=== PATIENT | female | born 1935 | race Caucasian/White ===

== ENCOUNTER 2020-08-08 16:19 | Inpatient (IN) | payer MEDICARE, OTHER ==
[~2020-08-08] VITALS: Ht 157.5 cm; Wt 41.0 kg
[~2020-08-08 16:19] MED LIST: ASPI-515 PO; CALC-112 PO; CEPH250S PO; CLOB15CR19 TP; IBUP-1623 PO; LEVO75TA5 PO; METF500T17 PO; OMEP-110 PO; SULF-169 PO
--- NOTE | 2020-08-08 16:24 | NUR ---
BIB EMS FROM [place] FOR EVAL OF L FEMUR FX SUSTAINED THIS AM WHILE "BENDING DOWN". PT DENIES DIZZINESS/CHEST PAIN PRIOR TO INCIDENT. ARRIVES IN REDUCTION DEVICE S/P CONSCIOUS SEDATION AND REDUCTION AT [facility], +DISTAL SENSATION/CIRCULATION. PT REPORTS 5/10 PAIN, BUT DENIES NEED FOR PAIN MEDICATIONS AT THIS TIME. BP/SPO2 MONITORING IN PLACE. LAST MEAL LAST NIGHT AT 1930. DENIES TAKING BLOOD THINNERS.
[2020-08-08] MEDS ORDERED: HYPERTENSION MED (16:27)
[2020-08-08] MEDS ORDERED: INSU100V35 SQ (16:55)
[2020-08-08] MEDS ORDERED: LISI2.5T PO (16:55)
[2020-08-08 17:00] LABS: BASOPHILS % (AUTO) 0 % (0-1); EOSINOPHILS % (AUTO) 1 % (1-7); LYMPHOCYTES % (AUTO) 12 % (22-44); MEAN CORPUSCULAR HEMOGLOBIN 31.2 pg (27.0-34.8); MEAN CORPUSCULAR HGB CONC 34.9 g/dL (32.4-35.8); MONOCYTES % (AUTO) 6 % (2-9); NEUTROPHILS % (AUTO) 81 % (42-75); PLATELET COUNT 268 x10^3/uL (130-400); RED BLOOD COUNT 3.08 x10^6/uL (3.82-5.3); RED CELL DISTRIBUTION WIDTH 13.2 % (9.6-15.2)
[2020-08-08 17:01] LABS: MD NO
[2020-08-08 17:11] LABS: ALBUMIN 3.2 g/dL (3.4-5.0); ANION GAP 5 mmol/L (5-15); CALCIUM 8.3 mg/dL (8.5-10.1); CHLORIDE 97 mmol/L (98-107); CREATININE 0.71 mg/dL (0.55-1.02); INTERNATIONAL NORMALIZED RATIO 1.03 (0.93-1.1); PROTHROMBIN TIME 10.9 Seconds (9.6-11.5)
--- NOTE | 2020-08-08 17:45 | NUR ---
PT RESTING IN KIM SILVA NOTED. DAUGHTER AT BEDSIDE WHO EXPRESSES CONCERN REGARDING PLACEMENT POST ADMIT. JESSICA HUTCHISON MADE AWARE. PT CONTINUES TO DENY NEED FOR PAIN MEDICATIONS.
--- NOTE | 2020-08-08 17:59 | NUR ---
ORDERS RECEIVED FOR BUCKS TRACTION. SURG DEVELOPMENTAL PSYCHOLOGIST CONTACTED FOR HELP WITH SET UP WHO AGREES TO HELP. HOSPITAL BED REQUESTED FOR PATIENT.
[2020-08-08] MEDS ORDERED: MORPHINE SULFATE 4 MG/ML, 1ML ONE (18:13)
--- NOTE | 2020-08-08 18:27 | NUR ---
PT MOVED TO HOSPITAL BED AND BUCKS TRACTION PLACED. PT PRE-MEDICATED W 2MG MORPHINE RODOLFO PER CINDY, HOSPITALIST FIBER MACHINE TENDER'S VERBAL ORDER.
[2020-08-08] MEDS ORDERED: ONDANSETRON ODT 4 MG PO PRN (19:00)
[2020-08-08] MEDS ORDERED: MELATONIN 5 MG TABLET PO PRN (19:00)
[2020-08-08] MEDS ORDERED: DOCUSATE 100 MG CAPSULE PO PRN (19:00)
[2020-08-08] MEDS ORDERED: LIDODERM 5% PATCH TD PRN (19:00)
[2020-08-08] MEDS: SODIUM CHLORIDE 0.9% 1,000 ML IV SCH ×2 (19:04→23:00)
[2020-08-08] MEDS: morphine SULFATE 10 MG/ML, 1ML IVPush PRN (19:04)
[2020-08-08] MEDS: INSULIN DEGLUDEC 5 UNIT HOMEINJ SCH (21:00)
[2020-08-08] MEDS: INSULIN LISPRO 100 UNITS/ML, PEN SQ-INSULIN SCH (21:00)
--- NOTE | 2020-08-08 21:51 | NUR ---
PT PROVIDED SANDWICH COMPLIANT W ORDERED DIET. DAUGHTER REMAINS AT BEDSIDE. PT CONTINUES TO REPORT IMPROVEMENT IN PAIN, DENIES NEED FOR PAIN MEDICATIONS. IMPROVED SBP W FLUIDS
--- NOTE | 2020-08-08 23:13 | NUR ---
PT RESTING IN GURNEY W EYES CLOSED. EVEN/REGULAR RESPIRATIONS NOTED. PT EASILY ARROUSABLE TO VOICE AND DENIES NEEDS/PAIN. L FOOT WITH GOOD CAP REFILL, +SENSATION.
[2020-08-09 01:22] VITALS: BP 110/58
[2020-08-09] MEDS: SODIUM CHLORIDE 0.9% 1,000 ML IV SCH ×2 (03:00→08:43)
[2020-08-09 05:50] LABS: BASOPHILS % (AUTO) 1 % (0-1); EOSINOPHILS % (AUTO) 3 % (1-7); LYMPHOCYTES % (AUTO) 41 % (22-44); MEAN CORPUSCULAR HEMOGLOBIN 31.1 pg (27.0-34.8); MEAN CORPUSCULAR HGB CONC 35.1 g/dL (32.4-35.8); MEAN PLATELET VOLUME 7.4 fL (7.4-10.4); MONOCYTES % (AUTO) 12 % (2-9); NEUTROPHILS % (AUTO) 44 % (42-75); PLATELET COUNT 249 x10^3/uL (130-400); RED BLOOD COUNT 2.75 x10^6/uL (3.82-5.3); RED CELL DISTRIBUTION WIDTH 13.2 % (9.6-15.2)
[2020-08-09 05:56] LABS: MD NO
[2020-08-09 05:59] LABS: CHLORIDE 101 mmol/L (98-107)
[2020-08-09 06:16] LABS: ANION GAP 5 mmol/L (5-15); CALCIUM 8.1 mg/dL (8.5-10.1); CREATININE 0.73 mg/dL (0.55-1.02)
[2020-08-09] MEDS: LEVOTHYROXINE 75 MCG TABLET PO SCH (06:28)
[2020-08-09] MEDS: LISINOPRIL 5 MG TABLET PO SCH (06:28)
[2020-08-09] MEDS ORDERED: HEPARIN 5,000 UNITS/ML, 1ML SQ SCH (07:00)
[2020-08-09 07:30] VITALS: BP 143/71
[2020-08-09] MEDS: INSULIN LISPRO 100 UNITS/ML, PEN SQ-INSULIN SCH ×4 (08:25→21:00)
[2020-08-09] MEDS ORDERED: LEVOTHYROXINE 75 MCG TABLET PO SCH (09:00)
[2020-08-09] MEDS ORDERED: LISINOPRIL 5 MG TABLET PO SCH (09:00)
[2020-08-09] MEDS: CALCIUM/VITAMIN D3 250-125 TABLET PO SCH (09:07)
[2020-08-09] MEDS: LACTATED RINGERS 1,000 ML IV SCH ×2 (09:07→22:20)
[2020-08-09] MEDS: INSULIN DEGLUDEC 5 UNIT HOMEINJ SCH ×2 (09:07→21:00)
[2020-08-09 13:41] VITALS: BP 160/74
[2020-08-09] MEDS: morphine SULFATE 10 MG/ML, 1ML IVPush PRN (16:35)
[2020-08-09] MEDS ORDERED: PROMETHAZINE 25 MG/ML, 1ML IV PRN (18:30)
[2020-08-09] MEDS ORDERED: ONDANSETRON 2MG/ML, 2ML IV ONE (18:30)
[2020-08-09] MEDS ORDERED: FENTANYL PF 100 MCG/2ML IV PRN (18:30)
[2020-08-09] MEDS ORDERED: HYDROcodone/APAP 7.5-325MG/15ML UDC PO PRN (18:30)
[2020-08-09] MEDS ORDERED: morphine SULFATE/PF 1 MG/ML, 10ML IVPush PRN (18:30)
[2020-08-09] MEDS ORDERED: ACETAMINOPHEN 650 MG/20.3 ML UDC PO ONE (18:30)
[2020-08-09] MEDS ORDERED: FENTANYL PF 250 MCG/5ML ONE (19:16)
[2020-08-09] MEDS ORDERED: CEFAZOLIN 1,000 MG ONE ×2 (19:32→19:36)
[2020-08-09] MEDS ORDERED: PROPOFOL 10 MG/ML, 20ML ONE ×2 (19:32→19:36)
[2020-08-09] MEDS ORDERED: SUCCINYLCHOLINE 20 MG/ML, 10ML ONE ×2 (19:32→19:36)
[2020-08-09] MEDS ORDERED: ONDANSETRON 2MG/ML, 2ML ONE (19:32)
[2020-08-09] MEDS ORDERED: DEXAMETHASONE 4 MG/ML, 1ML ONE (19:36)
[2020-08-09] MEDS ORDERED: FENTANYL PF 100 MCG/2ML ONE (20:53)
[2020-08-09] MEDS ORDERED: LABETALOL 5MG/ML, 20ML ONE (21:45)
[2020-08-09] MEDS ORDERED: LABETALOL 5MG/ML, 20ML IV PRN (22:00)
[2020-08-09] MEDS ORDERED: hydrALAzine 20 MG/ML, 1ML IV PRN (22:00)
[2020-08-10 00:40] VITALS: BP 101/60
[2020-08-10] MEDS: CEFAZOLIN PMX 1GM/50ML 50 ML IVPB SCH ×2 (03:52→11:33)
[2020-08-10 03:54] VITALS: BP 115/65
[2020-08-10 05:53] LABS: BASOPHILS % (AUTO) 0 % (0-1); EOSINOPHILS % (AUTO) 0 % (1-7); LYMPHOCYTES % (AUTO) 9 % (22-44); MEAN CORPUSCULAR HEMOGLOBIN 31.3 pg (27.0-34.8); MEAN CORPUSCULAR HGB CONC 34.6 g/dL (32.4-35.8); MEAN PLATELET VOLUME 7.7 fL (7.4-10.4); MONOCYTES % (AUTO) 8 % (2-9); NEUTROPHILS % (AUTO) 84 % (42-75); PLATELET COUNT 216 x10^3/uL (130-400); RED BLOOD COUNT 2.45 x10^6/uL (3.82-5.3); RED CELL DISTRIBUTION WIDTH 13.2 % (9.6-15.2)
[2020-08-10 06:01] LABS: ANION GAP 10 mmol/L (5-15); CALCIUM 8.1 mg/dL (8.5-10.1); CHLORIDE 97 mmol/L (98-107); CREATININE 0.86 mg/dL (0.55-1.02)
[2020-08-10 06:07] LABS: MD NO
[2020-08-10] MEDS: LEVOTHYROXINE 75 MCG TABLET PO SCH (06:35)
[2020-08-10] MEDS: LISINOPRIL 5 MG TABLET PO SCH (06:35)
[2020-08-10 07:08] VITALS: BP 122/68
[2020-08-10] MEDS ORDERED: INSULIN LISPRO 100 UNITS/ML, PEN SQ-INSULIN SCH (07:30)
[2020-08-10] MEDS ORDERED: MAGNESIUM SULFATE/D5W 100 ML IV ONE (07:30)
[2020-08-10] MEDS: SODIUM CHLORIDE 0.9% 1,000 ML IV SCH ×2 (07:44→21:35)
[2020-08-10] MEDS: CALCIUM/VITAMIN D3 250-125 TABLET PO SCH (08:56)
[2020-08-10] MEDS: INSULIN LISPRO 100 UNITS/ML, PEN SQ-INSULIN SCH ×4 (08:56→20:01)
[2020-08-10] MEDS: INSULIN DEGLUDEC 5 UNIT HOMEINJ SCH ×2 (08:58→19:19)
[2020-08-10] MEDS ORDERED: INSULIN GLARGINE 100 UNITS/ML, PEN SQ-INSULIN SCH ×2 (12:00→21:00)
[2020-08-10 12:22] VITALS: BP 96/59
[2020-08-10] MEDS ORDERED: INSULIN GLARGINE 100 UNITS/ML, PEN SQ-INSULIN ONE (12:30)
[2020-08-10] MEDS: ENOXAPARIN 40 MG/0.4 ML SQ SCH (13:19)
[2020-08-10 19:36] VITALS: BP 112/58
[2020-08-11] VITALS (7 sets, daily range): BP systolic 102–151; BP diastolic 53–75
[2020-08-11 05:35] LABS: ANION GAP 4 mmol/L (5-15); CALCIUM 7.6 mg/dL (8.5-10.1); CHLORIDE 103 mmol/L (98-107); CREATININE 0.67 mg/dL (0.55-1.02)
[2020-08-11 05:36] LABS: BASOPHILS % (AUTO) 0 % (0-1); EOSINOPHILS % (AUTO) 1 % (1-7); LYMPHOCYTES % (AUTO) 27 % (22-44); MEAN CORPUSCULAR HEMOGLOBIN 31.1 pg (27.0-34.8); MEAN PLATELET VOLUME 7.4 fL (7.4-10.4); MONOCYTES % (AUTO) 12 % (2-9); NEUTROPHILS % (AUTO) 60 % (42-75); PLATELET COUNT 227 x10^3/uL (130-400); RED BLOOD COUNT 2.12 x10^6/uL (3.82-5.3); RED CELL DISTRIBUTION WIDTH 13.2 % (9.6-15.2)
[2020-08-11 06:00] LABS: MD NO
[2020-08-11] MEDS: LEVOTHYROXINE 75 MCG TABLET PO SCH (06:21)
[2020-08-11] MEDS: LISINOPRIL 5 MG TABLET PO SCH (06:24)
[2020-08-11] MEDS: INSULIN DEGLUDEC 5 UNIT HOMEINJ SCH (07:28)
[2020-08-11] MEDS: CALCIUM/VITAMIN D3 250-125 TABLET PO SCH (08:31)
[2020-08-11] MEDS: INSULIN LISPRO 100 UNITS/ML, PEN SQ-INSULIN SCH ×4 (08:31→22:42)
[2020-08-11] MEDS: ENOXAPARIN 40 MG/0.4 ML SQ SCH (11:49)
[2020-08-11] MEDS: SODIUM CHLORIDE 0.9% 1,000 ML IV SCH (12:50)
[2020-08-11] MEDS: INSULIN GLARGINE 100 UNITS/ML, PEN SQ-INSULIN SCH (22:43)
[2020-08-12 00:20] VITALS: BP 158/77
[2020-08-12] MEDS: ACETAMINOPHEN 325 MG TABLET PO PRN ×2 (01:41→10:02)
[2020-08-12 06:26] LABS: BASOPHILS % (AUTO) 1 % (0-1); EOSINOPHILS % (AUTO) 2 % (1-7); LYMPHOCYTES % (AUTO) 28 % (22-44); MEAN CORPUSCULAR HEMOGLOBIN 28.8 pg (27.0-34.8); MEAN CORPUSCULAR HGB CONC 34.4 g/dL (32.4-35.8); MEAN PLATELET VOLUME 7.1 fL (7.4-10.4); MONOCYTES % (AUTO) 9 % (2-9); NEUTROPHILS % (AUTO) 61 % (42-75); PLATELET COUNT 218 x10^3/uL (130-400); RED BLOOD COUNT 2.63 x10^6/uL (3.82-5.3); RED CELL DISTRIBUTION WIDTH 17.3 % (9.6-15.2)
[2020-08-12 06:41] LABS: MD NO
[2020-08-12] MEDS: LEVOTHYROXINE 75 MCG TABLET PO SCH (06:57)
[2020-08-12] MEDS: LISINOPRIL 5 MG TABLET PO SCH (06:57)
[2020-08-12 07:37] VITALS: BP 131/60
[2020-08-12] MEDS: INSULIN LISPRO 100 UNITS/ML, PEN SQ-INSULIN SCH ×4 (10:02→21:24)
[2020-08-12] MEDS: CALCIUM/VITAMIN D3 250-125 TABLET PO SCH (10:02)
[2020-08-12] MEDS: ENOXAPARIN 30 MG/0.3 ML SQ SCH (12:57)
[2020-08-12 14:08] VITALS: BP 118/62
[2020-08-12] MEDS: SODIUM CHLORIDE 0.9% 1,000 ML IV SCH (16:42)
[2020-08-12] MEDS ORDERED: INSULIN LISPRO 100 UNITS/ML, PEN SQ-INSULIN SCH (17:00)
[2020-08-12 20:09] VITALS: BP 107/64
[2020-08-12 20:11] VITALS: BP 146/71
[2020-08-12] MEDS: INSULIN GLARGINE 100 UNITS/ML, PEN SQ-INSULIN SCH (21:23)
[2020-08-12] MEDS ORDERED: INSULIN LISPRO 100 UNITS/ML, PEN SQ-INSULIN ONE (21:30)
[2020-08-13 03:01] VITALS: BP 134/73
[2020-08-13] MEDS: LEVOTHYROXINE 75 MCG TABLET PO SCH (06:29)
[2020-08-13] MEDS: LISINOPRIL 5 MG TABLET PO SCH (06:29)
[2020-08-13] MEDS: INSULIN LISPRO 100 UNITS/ML, PEN SQ-INSULIN SCH ×4 (07:00→12:29)
[2020-08-13] MEDS: SODIUM CHLORIDE 0.9% 1,000 ML IV SCH (07:25)
[2020-08-13 07:40] VITALS: BP 148/73
[2020-08-13] MEDS: CALCIUM/VITAMIN D3 250-125 TABLET PO SCH (08:18)
[2020-08-13] MEDS ORDERED: ACET325T26 PO (10:05)
[2020-08-13] MEDS ORDERED: INSULIN LISPRO 100 UNITS/ML, PEN SQ-INSULIN SCH (12:00)
[2020-08-13] MEDS: ENOXAPARIN 30 MG/0.3 ML SQ SCH (12:00)
== END 2020-08-13 13:10 | disposition home health service (06) | DRG 481 ==
LOC: ED 17:18 → EDIP 17:24 → 4NE 08-09 00:27 → DCLOUNGE 08-13 12:58
PROVIDERS: ADMIT Hospitalist; ATTEND Family Medicine
PROC: 0QS736Z Reposition Left Upper Femur with Intramedullary Internal Fixation Device, Percutaneous Approach (ICD-10-PCS; principal; 2020-08-09 18:00)
PROC: 30233N1 Transfusion of Nonautologous Red Blood Cells into Peripheral Vein, Percutaneous Approach (ICD-10-PCS; 2020-08-11)
DX: S72.22XA Displaced subtrochanteric fracture of left femur, initial encounter for closed fracture (principal); E87.1 Hypo-osmolality and hyponatremia; I10 Essential (primary) hypertension; E03.9 Hypothyroidism, unspecified; E11.65 Type 2 diabetes mellitus with hyperglycemia; M81.0 Age-related osteoporosis without current pathological fracture; L90.0 Lichen sclerosus et atrophicus; I95.2 Hypotension due to drugs; T40.2X5A Adverse effect of other opioids, initial encounter; I25.2 Old myocardial infarction; Z79.82 Long term (current) use of aspirin; Z79.899 Other long term (current) drug therapy; Z79.891 Long term (current) use of opiate analgesic; Z79.4 Long term (current) use of insulin; Z82.61 Family history of arthritis; Z95.828 Presence of other vascular implants and grafts; X50.1XXA Overexertion from prolonged static or awkward postures, initial encounter; Z90.710 Acquired absence of both cervix and uterus; Y93.89 Activity, other specified; Y92.009 Unspecified place in unspecified non-institutional (private) residence as the place of occurrence of the external cause; Y99.8 Other external cause status; D64.9 Anemia, unspecified
CPT/HCPCS: 36415; 71045; 76000; 80048; 82040; 82947; 82962; 83735; 84443; 85014; 85018; 85025; 85610; 85730; 86850; 86900; 86923; 93005; C1713; G0378; J0690; J1100; J1644; J1650; J2405; J2704; J3010; J0330; J1815; J2270; J7030; J7120; P9016

== ENCOUNTER 2020-08-26 11:43 | Emergency (ER) | payer MEDICARE ==
[~2020-08-26] VITALS: Ht 157.5 cm; Wt 40.0 kg
[~2020-08-26 11:43] MED LIST changes: +ACET325T26 PO; +HYPERTENSION MED; +INSU100V35 SQ; +LISI2.5T PO
--- NOTE | 2020-08-26 12:17 | NUR ---
PATIENT WALKED BACK FROM TRIAGE WITH CHIEF C/O JAUNDICE. PER PATIENT'S DAUGHTER PATIENT HAD A YANELY PLACED IN HER LEFT FEMUR 08/08/2020, AND DAUGHTER NOTICED PATIENT WAS JAUNDICED 08/09/2020. PATIENT REPORTS N/V, DENIES DIARRHEA, DAUGHTER REPORTS PATIENT IS CONSTIPATED. NADN, VSS, SIDE RAILS UP X2, CALL LIGHT WITHIN REACH.
--- NOTE | 2020-08-26 12:56 | NUR ---
22 GAUGE IV STARTED LEFT AC, [facility] AT BEDSIDE.
[2020-08-26] MEDS ORDERED: SODIUM CHLORIDE FLUSH 10ML SYR IVF ONE (13:00)
--- NOTE | 2020-08-26 13:04 | NUR ---
PATIENT TO X-RAY.
[2020-08-26 13:10] LABS: BASOPHILS % (AUTO) 1 % (0-1); EOSINOPHILS % (AUTO) 3 % (1-7); LYMPHOCYTES % (AUTO) 20 % (22-44); MEAN CORPUSCULAR HEMOGLOBIN 29.7 pg (27.0-34.8); MEAN CORPUSCULAR HGB CONC 33.4 g/dL (32.4-35.8); MEAN PLATELET VOLUME 6.6 fL (7.4-10.4); MONOCYTES % (AUTO) 8 % (2-9); NEUTROPHILS % (AUTO) 68 % (42-75); PLATELET COUNT 705 x10^3/uL (130-400); RED BLOOD COUNT 3.14 x10^6/uL (3.82-5.3); RED CELL DISTRIBUTION WIDTH 18.3 % (9.6-15.2)
[2020-08-26 13:18] LABS: INTERNATIONAL NORMALIZED RATIO 0.99 (0.93-1.1); PROTHROMBIN TIME 10.5 Seconds (9.6-11.5)
[2020-08-26 13:20] LABS: ALANINE AMINOTRANSFERASE 15 U/L (12-78); ALBUMIN 2.9 g/dL (3.4-5.0); ANION GAP 9 mmol/L (5-15); CALCIUM 8.7 mg/dL (8.5-10.1); CHLORIDE 92 mmol/L (98-107); CREATININE 0.85 mg/dL (0.55-1.02)
[2020-08-26 13:22] LABS: ALKALINE PHOSPHATASE 160 U/L (45-117); BILIRUBIN,TOTAL 0.4 mg/dL (0.2-1.0); TOTAL PROTEIN 7.1 g/dL (6.4-8.2)
[2020-08-26 13:27] LABS: <PLATELET ESTIMATE> INCREASED; MD MORPH REVIEW ONLY
[2020-08-26 13:28] LABS: <PLT MORPHOLOGY> NORMAL PLT MORPH; ANISOCYTOSIS 1+; ECHINOCYTES 1+
--- NOTE | 2020-08-26 13:29 | NUR ---
PATIENT ASSISTED TO BS FOR URINE SAMPLE AND BACK TO [facility], URINE SAMPLE COLLECTED AND SENT TO LAB.
[2020-08-26 13:43] LABS: MICROSCOPIC INDICATED
--- NOTE | 2020-08-26 14:54 | NUR ---
PATIENT TO CT SCAN.
[2020-08-26] MEDS ORDERED: OMNIPAQUE 350 MG/ML, 100ML BOTTLE ONE (15:01)
--- NOTE | 2020-08-26 15:05 | NUR ---
PATIENT'S DAUGHTER ASSISTED PATIENT TO BSC.
[2020-08-26 15:25] VITALS: BP 141/57
== END 2020-08-26 15:37 | disposition home or self-care (01) ==
LOC: ED 12:34
DX: N30.01 Acute cystitis with hematuria (principal); E87.1 Hypo-osmolality and hyponatremia; R10.13 Epigastric pain; R17 Unspecified jaundice; E11.9 Type 2 diabetes mellitus without complications; E03.9 Hypothyroidism, unspecified; Z90.710 Acquired absence of both cervix and uterus
CPT/HCPCS: 36415; 74022; 74177; 76700; 80053; 81001; 83690; 85025; 85610; 85730; 87086; 87147; 99285; Q9967